=== PATIENT | male | born 1965 | race Caucasian/White ===

== ENCOUNTER 2016-09-03 07:36 | Outpatient (RCR) | payer BC ==
--- OUTSIDE RECORDS SUMMARY | 2016-09-03 07:40 | XMS REPORT | Continuity of Care Document ---
Author Author [facility] Organization [facility] Address Unknown Phone Unavailable Care Team Providers Care Milking Machine Operator Name Role Phone BEULAH ABDALLA DO PCP Insurance Providers Payer Name Policy Number Subscriber Name Relationship [facility] [id number] Lauren Navas 20 Self / Same As Patient Advance Directives Directive Response Recorded Date/Time Advance Directives No 12/12/15 10:08am Health Care Power of Roller Inspector No 12/12/15 10:08am Organ Donor Yes 12/12/15 10:08am Problems Active Problems Medical Problem Onset Date Status Epistaxis Unknown Acute Medications No known medications. Social History Social History Problem Response Recorded Date/Time Alcohol Use Denies Use 04/08/2014 8:41pm Recreational Drug Use No 04/08/2014 8:41pm Recent Foreign Travel No 04/08/2014 8:41pm Recent Infectious Disease Exposure No 04/08/2014 8:41pm Hospital Discharge Instructions No hospital discharge instructions. Plan of Care Prescriptions See Medication Section Functional Status No functional status results. Allergies, Adverse Reactions, Alerts No known allergies. Immunizations No immunization records. Vital Signs No known vital signs results. Results No known relevant diagnostic tests, laboratory data and/or discharge summary. Procedures No known history of procedures. Encounters Encounter Location Arrival/Admit Date Discharge/Depart Date Attending Provider Registered Recurring [facility] 04/30/16 10:45am BEULAH ABDALLA DO
== END 2016-12-02 | disposition home or self-care (01) ==
LOC: CARD 07:36
DX: R00.2 Palpitations (principal); R06.02 Shortness of breath
CPT/HCPCS: 93225; 93226

== ENCOUNTER → 2021-01-21 | Outpatient (CLI) | payer BC ==
[~2021-01-21] VITALS: Ht 158.9 cm; Wt 177.8 kg
[~2021-01-21] MED LIST: EPINEPHrine INJECTION 1 MG/ML AMP IM PRN; [UNRECOGNIZED DRUG - OTHER] IV ONE; diphenhydrAMINE 50 MG/ML INJ (BENADRYL) IV PRN
[2021-01-21 13:20] VITALS: BP 116/59
[2021-01-21 15:00] VITALS: BP 111/71
== END ==
LOC: INFUSION 13:07
PROVIDERS: ATTEND Nurse Practitioner Family
DX: U07.1 COVID-19 (principal)

== ENCOUNTER 2021-01-25 09:57 | Inpatient (IN) | payer BC ==
[~2021-01-25] VITALS: Ht 177.8 cm; Wt 154.2 kg
[2021-01-25] MEDS ORDERED: dexAMETHasone 6 MG TAB (DECADRON) ONE (10:20)
[2021-01-25] MEDS ORDERED: LACTATED RINGERS 1,000 ML IV ONE (10:22)
[2021-01-25 10:55] LABS: BASOPHILS % (AUTO) 0 % (0-10); EOSINOPHILS # (AUTO) 0.1 10^3/uL (0.0-0.3); EOSINOPHILS % (AUTO) 1 % (0-10); HEMATOCRIT 46 % (40-54); LYMPHOCYTES # (AUTO) 0.9 10^3/uL (1.0-4.0); LYMPHOCYTES % (AUTO) 14 % (12-44); MEAN CORPUSCULAR HEMOGLOBIN 30 pg (25-34); MEAN CORPUSCULAR HGB CONC 35 g/dL (32-36); MEAN CORPUSCULAR VOLUME 88 fL (80-99); MEAN PLATELET VOLUME 9.3 fL (9.0-12.2); MONOCYTES # (AUTO) 0.7 10^3/uL (0.0-1.0); MONOCYTES % (AUTO) 11 % (0-12); NEUTROPHILS # (AUTO) 4.9 10^3/uL (1.8-7.8); NEUTROPHILS % (AUTO) 74 % (42-75); PLATELET COUNT 232 10^3/uL (130-400); WHITE BLOOD COUNT 6.6 10^3/uL (4.3-11.0)
--- NOTE | 2021-01-25 11:03 | Diagnostic Imaging Report ---
INDICATION: COVID positive, cough. TECHNIQUE: Single view chest 10:56 AM. CORRELATION STUDY: None FINDINGS: Heart size is borderline enlarged. Vasculature overall within normal limits. Scattered bilateral pulmonary opacities are present, the left slightly greater than right. Also some increased density in the perihilar regions. IMPRESSION: 1. Cardiac enlargement without overt failure. 2. Bilateral pulmonary opacities left greater than right favoring multilobe pneumonia. This would include underlying COVID pneumonia. Followup imaging is recommended as some of these areas have a slightly nodular appearance. Dictated by: Dictated on workstation # [id number]
[2021-01-25 11:08] LABS: ALBUMIN 3.7 GM/DL (3.2-4.5); POTASSIUM 3.2 MMOL/L (3.6-5.0)
[2021-01-25 11:10] LABS: CALCIUM 8.4 MG/DL (8.5-10.1)
[2021-01-25 11:12] LABS: BILIRUBIN,TOTAL 0.8 MG/DL (0.1-1.0)
[2021-01-25 11:14] LABS: CREATININE SERUM 1.87 MG/DL (0.60-1.30)
[2021-01-25 11:32] LABS: ABG OXYGEN SATURATION 97 % (94-100); ABG PCO2 35 MMHG (35-45); ABG PH 7.43 (7.37-7.43); ABG PO2 92 MMHG (79-93); ABG TCO2 23.8 MMOL/L (21.0-31.0)
[2021-01-25 11:34] LABS: INSPIRED O2 3 L; PATIENT TEMP 36.9; VENTILATOR NO
--- NOTE | 2021-01-25 11:40 | ED General ---
General Chief Complaint: Respiratory Problems Stated Complaint: SOA - COVID POSITIVE Nursing Triage Note: Pt on 9th day COVID+. Pt reports getting antibodies Wed. C/o SOB and hypoxia. Nursing Sepsis Screen: No Definite Risk Source of Information: Patient Exam Limitations: No Limitations History of Present Illness Date Seen by Provider: Jan 25, 2021 Time Seen by Provider: 10:00 Initial Comments Here with report of onset of Covid symptoms about 10 days ago. He did receive monoclonal antibody therapy earlier this week. Started to become increasing short of breath over the last 2 days and noted hypoxia at home with O2 sat at 90%. Arrives with O2 sat 85% on room air after resting. Denies fevers but does have persistent cough and congestion. States his mouth is quite dry. Does have history of obesity and hypertension but otherwise is healthy. He did not receive Covid vaccination. Timing/Duration: 2-3 Days, Getting Worse Severity: Moderate, Severe Associated Systoms: Cough, Fever/Chills; No Nausea/Vomiting; Shortness of Air Allergies and Home Medications Allergies Coded Allergies: No Known Drug Allergies (Unverified , 01/25/14) Home Medications No Active Prescriptions or Reported Meds Patient Home Medication List Home Medication List Reviewed: Yes Review of Systems Review of Systems Constitutional: see HPI, fever EENTM: nose congestion Respiratory: cough, short of breath Cardiovascular: no symptoms reported Gastrointestinal: no symptoms reported Genitourinary: no symptoms reported Musculoskeletal: no symptoms reported Skin: no symptoms reported All Other Systems Reviewed Negative Unless Noted: Yes Past Oiwsrby-Yrbmdn-Aiigpm Hx Past Med/Social Hx: Reviewed Nursing Past Med/Soc Hx Patient Social History Alcohol Use: Denies Use 2nd Hand Smoke Exposure: No Recent Infectious Disease Expo: No Recent Hopitalizations: No Past Medical History Surgeries: Yes (LITHOTRIPSY, R hip, bilat carpal tunnel) Orthopedic Respiratory: No Cardiac: Yes Hypertension Neurological: No Genitourinary: No Gastrointestinal: No Musculoskeletal: No Endocrine: No HEENT: No Cancer: No Psychosocial: No Integumentary: No Blood Disorders: No Family Medical History Reviewed Nursing Family Hx Physical Exam-Suspected Sepsis Physical Exam Vital Signs Vital Signs - First Documented 01/25/21 10:14 Temp 36.9 Pulse 80 Resp 20 B/P (MAP) 133/80 (97) Pulse Ox 95 O2 Delivery Nasal Cannula O2 Flow Rate 3.00 Capillary Refill : Less Than 3 Seconds Blood Pressure Mean: 97 Height, Weight, BMI Height: 5'10.00" Weight: 330lbs. 0.0oz. 149.060983mm; 48.00 BMI Method:Stated General Appearance: No Apparent Distress, WD/WN HEENT: PERRL/EOMI, Pharyngeal Erythema Neck: Non Tender, Supple Respiratory: Crackles, Decreased Breath Sounds; No Wheezing Cardiovascular: Regular Rate, Rhythm; No No Murmur Gastrointestinal: Non Tender, Soft Back: Normal Inspection, No CVA Tenderness, No Vertebral Tenderness Extremity: Normal Range of Motion, Non Tender Neurologic/Psychiatric: Alert, Oriented x3 Skin: normal color, warm/dry Progress/Results/Core Measures Suspected Sepsis Recent Fever Within 48 Hours: No Infection Criteria Present: Suspected New Infection New/Unexplained Altered Menta: No Sepsis Screen: No Definite Risk SIRS Temperature: Pulse: 80 Respiratory Rate: 20 Laboratory Tests 01/25/21 10:30: White Blood Count 6.6 Blood Pressure 133 /80 Mean: 97 Laboratory Tests 01/25/21 10:30: Creatinine 1.87H, Platelet Count 232, Total Bilirubin 0.8 Results/Orders Lab Results Laboratory Tests Test 01/25/21 10:30 01/25/21 11:15 Range/Units White Blood Count 6.6 4.3-11.0 10^3/uL Red Blood Count 5.28 4.30-5.52 10^6/uL Hemoglobin 16.0 13.3-17.7 g/dL Hematocrit 46 40-54 % Mean Corpuscular Volume 88 80-99 fL Mean Corpuscular Hemoglobin 30 25-34 pg Mean Corpuscular Hemoglobin Concent 35 32-36 g/dL Red Cell Distribution Width 12.9 10.0-14.5 % Platelet Count 232 130-400 10^3/uL Mean Platelet Volume 9.3 9.0-12.2 fL Immature Granulocyte % (Auto) 1 % Neutrophils (%) (Auto) 74 42-75 % Lymphocytes (%) (Auto) 14 12-44 % Monocytes (%) (Auto) 11 0-12 % Eosinophils (%) (Auto) 1 0-10 % Basophils (%) (Auto) 0 0-10 % Neutrophils # (Auto) 4.9 1.8-7.8 10^3/uL Lymphocytes # (Auto) 0.9 L 1.0-4.0 10^3/uL Monocytes # (Auto) 0.7 0.0-1.0 10^3/uL Eosinophils # (Auto) 0.1 0.0-0.3 10^3/uL Basophils # (Auto) 0.0 0.0-0.1 10^3/uL Immature Granulocyte # (Auto) 0.1 0.0-0.1 10^3/uL D-Dimer 0.79 H 0.00-0.49 UG/ML Sodium Level 139 135-145 MMOL/L Potassium Level 3.2 L 3.6-5.0 MMOL/L Chloride Level 103 98-107 MMOL/L Carbon Dioxide Level 24 21-32 MMOL/L Anion Gap 12 5-14 MMOL/L Blood Urea Nitrogen 33 H 7-18 MG/DL Creatinine 1.87 H 0.60-1.30 MG/DL Estimat Glomerular Filtration Rate 38 BUN/Creatinine Ratio 18 Glucose Level 108 H 70-105 MG/DL Calcium Level 8.4 L 8.5-10.1 MG/DL Corrected Calcium 8.6 8.5-10.1 MG/DL Total Bilirubin 0.8 0.1-1.0 MG/DL Aspartate Amino Transf (AST/SGOT) 80 H 5-34 U/L Alanine Aminotransferase (ALT/SGPT) 73 H 0-55 U/L Alkaline Phosphatase 56 40-136 U/L C-Reactive Protein High Sensitivity 1.23 H 0.00-0.50 MG/DL Total Protein 7.0 6.4-8.2 GM/DL Albumin 3.7 3.2-4.5 GM/DL Procalcitonin 0.09 <0.10 NG/ML Blood Gas Puncture Site RT RAD Blood Gas Patient Temperature 36.9 Arterial Blood pH 7.43 7.37-7.43 Arterial Blood Partial Pressure CO2 35 35-45 MMHG Arterial Blood Partial Pressure O2 92 79-93 MMHG Arterial Blood HCO3 23 23-27 MMOL/L Arterial Blood Total CO2 23.8 21.0-31.0 MMOL/L Arterial Blood Oxygen Saturation 97 94-100 % Arterial Blood Base Excess -1.0 -2.5-2.5 MMOL/L Mohsen Test NA Blood Gas Ventilator Setting NO Blood Gas Inspired Oxygen 3 L My Orders Orders - MARY HODGES MD Dexamethasone Injection (Decadron Inje (01/25/21 10:18) Dexamethasone Tablet (Decadron Tablet) (01/25/21 10:20) Lactated Ringers (Lr 1000 Ml Iv Solution (01/25/21 10:22) Medications Given in ED Current Medications Medications Dose Ordered Sig/Farhat Route Start Time Stop Time Status Last Admin Dose Admin Dexamethasone 6 mg STK-MED ONCE .ROUTE 01/25/21 10:20 01/25/21 10:24 DC 01/25/21 10:33 6 MG Lactated Ringer's 1,000 ml @ ud STK-MED ONCE IV 01/25/21 10:22 01/25/21 10:27 DC 01/25/21 10:35 1,000 MLS/HR Vital Signs/I&O 01/25/21 01/25/21 10:14 10:14 Temp 36.9 Pulse 80 Resp 20 B/P (MAP) 133/80 (97) Pulse Ox 95 85 O2 Delivery Nasal Cannula Room Air O2 Flow Rate 3.00 Capillary Refill : Less Than 3 Seconds Blood Pressure Mean: 97 Progress Note : Progress Note Seen and evaluated. Sepsis protocol initiated. Patient is positive for COVID- 19. He did get monoclonal antibody therapy. IV, labs, chest x-ray ordered. Decadron 6 mg p.o. ordered. Patient placed on O2 via nasal cannula at 3 L and O2 sat improved to 95%. Monitor patient. 1134: I did discuss the case with Dr. Mireles and she accepts patient for admission, inpatient status to the medical floor. This was discussed with the patient who agrees with plan. Diagnostic Imaging Diagonstic Imaging: Xray Plain Films/CT/US/NM/MRI: chest Comments [facility]. [place], [place] NAME: LAUREN NAVAS [facility] REC#: [id number] PT STATUS: REG ER : 1965 PHYSICIAN: VIVIAN LAWRENCE APRN ADMIT DATE: 01/25/21/ER Draft Date of Exam:01/25/21 CHEST 1 VIEW, AP/PA ONLY INDICATION: COVID positive, cough. TECHNIQUE: Single view chest 10:56 AM. CORRELATION STUDY: None FINDINGS: Heart size is borderline enlarged. Vasculature overall within normal limits. Scattered bilateral pulmonary opacities are present, the left slightly greater than right. Also some increased density in the perihilar regions. IMPRESSION: 1. Cardiac enlargement without overt failure. 2. Bilateral pulmonary opacities left greater than right favoring multilobe pneumonia. This would include underlying COVID pneumonia. Followup imaging is recommended and some of these areas have a slightly nodular appearance. Dictated on workstation # [id number] Dict: 01/25/21 1059 Trans: 01/25/21 1103 CV [id number] Interpreted by: AMBER WILLIS DO Electronically signed by: Reviewed: Reviewed by Me Departure Communication (Admissions) Time/Spoke to Admitting Phy: 11:34 Impression Primary Impression: Pneumonia due to COVID-19 virus Disposition: ADMITTED INPATIENT Condition: Stable Admissions Decision to Admit Reason: Admit from ER (General) Decision to Admit/Date: Jan 25, 2021 Time/Decision to Admit Time: 11:34 Departure-Patient Inst. Referrals: DAMION LEÓN DO (PCP/Family) Primary Care Physician Scripts No Active Prescriptions or Reported Meds MARY HODGES MD Jan 25, 2021 11:40
[2021-01-25] MEDS ORDERED: ACETAMINOPHEN 325 MG TABLET PO PRN (11:45)
[2021-01-25] MEDS ORDERED: guaiFENesin/CODEINE (ROBITUSSIN AC) 10ML UDC PO PRN (11:45)
[2021-01-25] MEDS ORDERED: ONDANSETRON 4 MG/2 ML (SDV) Z0FRAN IV PRN (11:45)
[2021-01-25] MEDS ORDERED: REMDESIVIR INJ 200 MG in NS (IVPB) 210 ML IV ONE (11:45)
[2021-01-25 11:55] VITALS: BP 118/63
[2021-01-25] MEDS: ENOXAPARIN 40 MG/0.4 ML (LOVENOX) SYR SC SCH (12:19)
[2021-01-25] MEDS: guaiFENesin SYRUP 100 MG/5 ML 10 ML (ROBITUSSIN SF) PO SCH ×4 (12:19→21:58)
--- NOTE | 2021-01-25 13:22 | History & Physical-Hospitalist ---
History of Present Illness HPI/Chief Complaint Pt is a 55yoCM with a PMH of HTN who presented to the ER due to shortness of breath. He was diagnosed with COVID this week after developing symptoms 9 days ago. He had a family get together with family from out of state about 12 days ago who have all gotten sick since. He has not been vaccinated. He received monoclonal antibody infusion on 01/21. Despite that he has continued to cough and not feel well. His oxygen saturations had been in the low 90s but dropped to the 80s today prompting him to seek evaluation. He responded well to 3lpm and was able to maintain sats with that. He was admitted for further care. Source: patient Date Seen 01/25/21 Time Seen by a Provider: 13:17 Attending Physician Shira Mireles MD PCP Lokesh León DO Referring Physician Date of Admission Jan 25, 2021 at 11:34 Home Medications & Allergies Home Medications Reviewed patient Home Medication Reconciliation performed by pharmacy medication reconciliations technician terminal and repeater and/or nursing. Patients Allergies have been reviewed. Allergies Allergies Coded Allergies No Known Drug Allergies (Unverified01/25/14) Past Ulpuzno-Bvphnx-Uglrbw Hx Patient Social History Marrital Status: Employed/Student: employed Tobacco Use?: No Smoking Status: Never a Smoker Smokeless Tobacco Frequency: Never a User Use of E-Cig and/or Vaping dev: No Substance use?: No Alcohol Use?: No Pt feels they are or have been: No Immunizations Up To Date Tetanus Booster (TDap): Less Than 5 Years Hepatitis A: Yes Hepatitis B: Yes Current Status Advance Directives: No Communicates: Verbally Primary Language: Kyrgyz Preferred Spoken Language: Kyrgyz Is interpretation needed?: No Implanted or Applied Medical D: None Past Medical History Surgeries: Orthopedic Hypertension Blood Disorders: No Family Medical History Reviewed Nursing Family Hx Review of Systems Constitutional: No chills; fever, malaise EENTM: no symptoms reported Respiratory: cough, phlegm, short of breath Cardiovascular: No chest pain, No edema, No palpitations Gastrointestinal: No abdominal pain, No diarrhea, No nausea, No vomiting Genitourinary: no symptoms reported Musculoskeletal: no symptoms reported Skin: no symptoms reported Psychiatric/Neurological: No Symptoms Reported Physical Exam Physical Exam Vital Signs Vital Signs - First Documented 01/25/21 10:14 Temp 36.9 Pulse 80 Resp 20 B/P (MAP) 133/80 (97) Pulse Ox 95 O2 Delivery Nasal Cannula O2 Flow Rate 3.00 Capillary Refill : Less Than 3 Seconds Height, Weight, BMI Height: 5'10.00" Weight: 330lbs. 0.0oz. 149.590391qd; 48.77 BMI Method:Stated General Appearance: No Apparent Distress, Obese HEENT: PERRL/EOMI, Moist Mucous Membranes; No Scleral Icterus (L), No Scleral Icterus (R) Neck: Normal Inspection, Supple Respiratory: No Accessory Muscle Use; No Crackles; Decreased Breath Sounds, Other (on 3lpm) Cardiovascular: Regular Rate, Rhythm, No Murmur Gastrointestinal: Normal Bowel Sounds, Non Tender, Soft Extremity: Normal Capillary Refill, No Calf Tenderness, No Pedal Edema Neurologic/Psychiatric: Alert, Oriented x3, Normal Mood/Affect Skin: Normal Color, Warm/Dry Results Results/Procedures Labs Laboratory Tests 01/25/21 10:30 Patient resulted labs reviewed. Imaging: Reviewed Imaging Report Imaging [facility] [place], [place] NAME: LAUREN NAVAS [facility] REC#: [id number] PT STATUS: REG ER : 1965 PHYSICIAN: VIVIAN LAWRENCE APRN ADMIT DATE: 01/25/21/ER Signed Date of Exam:01/25/21 CHEST 1 VIEW, AP/PA ONLY INDICATION: COVID positive, cough. TECHNIQUE: Single view chest 10:56 AM. CORRELATION STUDY: None FINDINGS: Heart size is borderline enlarged. Vasculature overall within normal limits. Scattered bilateral pulmonary opacities are present, the left slightly greater than right. Also some increased density in the perihilar regions. IMPRESSION: 1. Cardiac enlargement without overt failure. 2. Bilateral pulmonary opacities left greater than right favoring multilobe pneumonia. This would include underlying COVID pneumonia. Followup imaging is recommended as some of these areas have a slightly nodular appearance. Dictated by: Dictated on workstation # [id number] Dict: 01/25/21 1059 Trans: 01/25/21 1133 CVB [id number] Interpreted by: AMBER WILLIS DO Electronically signed by: AMBER WILLIS DO 01/25/21 1133 Assessment/Plan Admission Diagnosis Acute hypoxic respiratory failure due to COVID19 Admission Status: Inpatient Order (span 2 midnights) Reason for Inpatient Admission: see below Assessment and Plan Acute hypoxic respiratory failure due to COVID19 85% on room air Doing well on 3lpm Start on remdesivir Start on decadron Already received monoclonal anitbody so convalescent plasma not indicated IS MAT protocol Discussed natural course of illess and that COVID likely gets worse before it get better at this time so anticipate a few days in the hospital HTN BP well controlled, even a little soft on last check Trend Morbid obesity No acute needs DVT ppx: Lovenox Diagnosis/Problems Diagnosis/Problems (1) Acute respiratory failure Qualifiers: Respiratory failure complication: hypoxia Qualified Codes: J96.01 - Acute respiratory failure with hypoxia (2) COVID-19 (3) Essential (primary) hypertension (4) Obesity Qualifiers: Obesity type: unspecified obesity type Obesity classification: adult class 3 (BMI >= 40) Serious obesity comorbidity presence: without serious comorbidity Body mass index: BMI 45.0-49.9 Qualified Codes: E66.01 - Morbid (severe) obesity due to excess calories; Z68.42 - Body mass index [BMI] 45.0- 49.9, adult Copy Copies To 1: LOKESH LEÓN KATELYN M MD Jan 25, 2021 13:22
[2021-01-25] MEDS ORDERED: REMDESIVIR INJ 200 MG in NS (IVPB) 210 ML IV NR (14:00)
[2021-01-25] MEDS ORDERED: REMDESIVIR INJ 100 MG in NS (IVPB) 230 ML IV SCH (14:00)
[2021-01-25 17:00] VITALS: BP 129/70
[2021-01-25 20:04] VITALS: BP 125/84
[2021-01-25 23:47] VITALS: BP 130/75
[2021-01-26 03:42] VITALS: BP 135/81
[2021-01-26] MEDS: guaiFENesin SYRUP 100 MG/5 ML 10 ML (ROBITUSSIN SF) PO SCH ×5 (04:20→19:45)
[2021-01-26 05:28] LABS: ALBUMIN 3.3 GM/DL (3.2-4.5); POTASSIUM 3.6 MMOL/L (3.6-5.0)
[2021-01-26 05:31] LABS: TOTAL PROTEIN 6.2 GM/DL (6.4-8.2)
[2021-01-26 05:32] LABS: BILIRUBIN,TOTAL 0.7 MG/DL (0.1-1.0)
[2021-01-26 05:34] LABS: CREATININE SERUM 1.44 MG/DL (0.60-1.30)
[2021-01-26 08:00] VITALS: BP 133/66
[2021-01-26] MEDS: dexAMETHasone 6 MG TAB (DECADRON) PO SCH (09:10)
[2021-01-26] MEDS ORDERED: LOSARTAN 100 MG (COZAAR) TABLET PO ONE (11:15)
[2021-01-26] MEDS ORDERED: guaiFENesin (MUCINEX) 600 MG TAB PO ONE (11:15)
[2021-01-26] MEDS: ENOXAPARIN 40 MG/0.4 ML (LOVENOX) SYR SC SCH (11:26)
[2021-01-26] MEDS ORDERED: CHOL10007 PO (12:08)
[2021-01-26] MEDS ORDERED: FLUT12AE6 INH (12:08)
[2021-01-26] MEDS ORDERED: LOSA1TAB23 PO (12:08)
[2021-01-26] MEDS ORDERED: ZINC50TA11 PO (12:08)
[2021-01-26] MEDS ORDERED: ASCO-262 PO (12:08)
[2021-01-26] MEDS ORDERED: ASPI-1238 PO (12:08)
[2021-01-26 12:36] VITALS: BP 122/62
[2021-01-26] MEDS: REMDESIVIR INJ 100 MG in NS (IVPB) 230 ML IV SCH (15:28)
[2021-01-26 15:40] VITALS: BP 121/69
--- NOTE | 2021-01-26 18:53 | Progress Note - Hospitalist ---
Subjective HPI/CC On Admission Date Seen by Provider: Jan 26, 2021 Time Seen by Provider: 10:55 Pt is a 55yoCM with a PMH of HTN who presented to the ER due to shortness of breath. He was diagnosed with COVID this week after developing symptoms 9 days ago. He had a family get together with family from out of state about 12 days ago who have all gotten sick since. He has not been vaccinated. He received monoclonal antibody infusion on 01/21. Despite that he has continued to cough and not feel well. His oxygen saturations had been in the low 90s but dropped to the 80s today prompting him to seek evaluation. He responded well to 3lpm and was able to maintain sats with that. He was admitted for further care. Subjective/Events-last exam He is still short of breath. He continues to have a cough. He has not had fevers. He is up and walking. Objective Exam Vital Signs Vital Signs Date Time Temp Pulse Resp B/P (MAP) Pulse Ox O2 Delivery O2 Flow Rate FiO2 01/26/21 15:40 36.0 67 18 121/69 (86) 96 Nasal Cannula 4.00 Capillary Refill : Less Than 3 Seconds General Appearance: No Apparent Distress, Obese Respiratory: No Respiratory Distress, Decreased Breath Sounds Cardiovascular: Regular Rate, Rhythm, No Edema, No Murmur Gastrointestinal: Normal Bowel Sounds, Non Tender, Soft Extremity: Normal Inspection, Non Tender, No Pedal Edema Neurologic/Psychiatric: Alert, Oriented x3, No Motor/Sensory Deficits, Normal Mood/Affect Skin: Normal Color, Warm/Dry Results/Procedures Lab Laboratory Tests 01/26/21 05:02 Patient resulted labs reviewed. Imaging: Reviewed Imaging Report Assessment/Plan Assessment and Plan Assess & Plan/Chief Complaint Acute respiratory failure due to COVID-19 Continue Decadron Continue Remdesivir day 2/5 s/p monoclonal antibody infusion prior to admission IS MAT protocol Procal normal Ddimer mildly elevated Repeat procalcitonin and ddimer tomorrow morning ADEBAYO on CKD Cr 1.8 on arrival, improved to 1.4 today, unknown baseline Monitor Elevated LFTs Slightly elevated on arrival, improving today Continue to monitor HTN Continue Losartan Morbid obesity No acute needs DVT ppx: Lovenox Diagnosis/Problems Diagnosis/Problems (1) Acute respiratory failure due to COVID-19 Status: Acute (2) Pneumonia due to COVID-19 virus Status: Acute (3) Elevated LFTs Status: Acute (4) Acute kidney injury superimposed on chronic kidney disease Status: Acute (5) Morbid obesity Status: Chronic (6) HTN (hypertension) Status: Chronic Qualifiers: Hypertension type: essential hypertension Qualified Codes: I10 - Essential (primary) hypertension ESTEPHANIA RODRIGUEZ MD Jan 26, 2021 18:53
[2021-01-26 19:43] VITALS: BP 128/68
[2021-01-26] MEDS: guaiFENesin (MUCINEX) 600 MG TAB PO SCH (19:45)
[2021-01-26 23:08] VITALS: BP 145/73
[2021-01-27] MEDS: guaiFENesin SYRUP 100 MG/5 ML 10 ML (ROBITUSSIN SF) PO SCH ×3 (00:42→05:58)
[2021-01-27 04:04] VITALS: BP 137/75
[2021-01-27 06:38] LABS: ALANINE AMINOTRANSFERASE 61 U/L (0-55); ALBUMIN 3.4 GM/DL (3.2-4.5); ALKALINE PHOSPHATASE 46 U/L (40-136); BILIRUBIN,TOTAL 0.6 MG/DL (0.1-1.0); BUN/CREATININE RATIO 21; CALCIUM 8.8 MG/DL (8.5-10.1); CARBON DIOXIDE 23 MMOL/L (21-32); CHLORIDE 106 MMOL/L (98-107); CREATININE SERUM 1.15 MG/DL (0.60-1.30); GFR ESTIMATED > 60; GLUCOSE 125 MG/DL (70-105); POTASSIUM 3.8 MMOL/L (3.6-5.0); SODIUM 139 MMOL/L (135-145); TOTAL PROTEIN 6.4 GM/DL (6.4-8.2)
[2021-01-27 08:00] VITALS: BP 137/91
[2021-01-27] MEDS: guaiFENesin (MUCINEX) 600 MG TAB PO SCH ×2 (09:18→19:56)
[2021-01-27] MEDS: LOSARTAN 100 MG (COZAAR) TABLET PO SCH (09:19)
[2021-01-27] MEDS: dexAMETHasone 6 MG TAB (DECADRON) PO SCH (09:19)
[2021-01-27] MEDS: ENOXAPARIN 40 MG/0.4 ML (LOVENOX) SYR SC SCH ×2 (09:21→19:56)
[2021-01-27 12:00] VITALS: BP 154/74
[2021-01-27] MEDS: REMDESIVIR INJ 100 MG in NS (IVPB) 230 ML IV SCH (14:38)
[2021-01-27 15:50] VITALS: BP 140/75
--- NOTE | 2021-01-27 18:07 | Progress Note - Hospitalist ---
Subjective HPI/CC On Admission Date Seen by Provider: Jan 27, 2021 Time Seen by Provider: 11:10 Pt is a 55yoCM with a PMH of HTN who presented to the ER due to shortness of breath. He was diagnosed with COVID this week after developing symptoms 9 days ago. He had a family get together with family from out of state about 12 days ago who have all gotten sick since. He has not been vaccinated. He received monoclonal antibody infusion on 01/21. Despite that he has continued to cough and not feel well. His oxygen saturations had been in the low 90s but dropped to the 80s today prompting him to seek evaluation. He responded well to 3lpm and was able to maintain sats with that. He was admitted for further care. Subjective/Events-last exam He is feeling better. He denies trouble breathing. He still has a cough. Objective Exam Vital Signs Vital Signs Date Time Temp Pulse Resp B/P (MAP) Pulse Ox O2 Delivery O2 Flow Rate FiO2 01/27/21 15:50 36.0 67 18 140/75 (96) 97 Nasal Cannula 3.00 Capillary Refill : Less Than 3 Seconds General Appearance: No Apparent Distress, Obese Respiratory: Lungs Clear, Normal Breath Sounds, No Respiratory Distress Cardiovascular: Regular Rate, Rhythm, No Edema, No Murmur Gastrointestinal: Normal Bowel Sounds, Non Tender, Soft Extremity: Normal Inspection, Non Tender, No Pedal Edema Neurologic/Psychiatric: Alert, Oriented x3, No Motor/Sensory Deficits, Normal Mood/Affect Skin: Normal Color, Warm/Dry Results/Procedures Lab Laboratory Tests 01/27/21 05:55 Patient resulted labs reviewed. Imaging: Reviewed Imaging Report Assessment/Plan Assessment and Plan Assess & Plan/Chief Complaint Acute respiratory failure due to COVID-19 Continue Decadron Continue Remdesivir day 3/5 s/p monoclonal antibody infusion prior to admission IS MAT protocol Procal remains normal Ddimer mildly elevated, improving Perform home oxygen study tomorrow ADEBAYO on CKD Cr 1.8 on arrival, improved to 1.15 today, unknown baseline Monitor Elevated LFTs Slightly elevated on arrival, improving today Continue to monitor HTN Continue Losartan Morbid obesity No acute needs DVT ppx: Lovenox Diagnosis/Problems Diagnosis/Problems (1) Acute respiratory failure due to COVID-19 Status: Acute (2) Pneumonia due to COVID-19 virus Status: Acute (3) Elevated LFTs Status: Acute (4) Acute kidney injury superimposed on chronic kidney disease Status: Acute (5) Morbid obesity Status: Chronic (6) HTN (hypertension) Status: Chronic Qualifiers: Hypertension type: essential hypertension Qualified Codes: I10 - Essential (primary) hypertension ESTEPHANIA RODRIGUEZ MD Jan 27, 2021 18:07
[2021-01-27] MEDS ORDERED: MILK OF MAGNESIA 400 MG/5 ML 30 ML UDC PO PRN (18:15)
[2021-01-27] MEDS ORDERED: ANTACID SUSP 30 ML UDC (MYLANTA) PO PRN (18:15)
[2021-01-27] MEDS ORDERED: MELATONIN 3 MG TABLET PO PRN (18:15)
[2021-01-27] MEDS ORDERED: polyethylene glycoL POWDER 17 GM (MIRALAX) PACK PO PRN (18:15)
[2021-01-27] MEDS ORDERED: diphenhydrAMINE 25 MG TAB (BENADRYL) PO PRN (18:15)
[2021-01-27 19:10] VITALS: BP 133/76
[2021-01-27 23:54] VITALS: BP 143/65
[2021-01-28 04:41] VITALS: BP 145/82
[2021-01-28 06:27] LABS: ALBUMIN 3.3 GM/DL (3.2-4.5); BILIRUBIN,TOTAL 0.6 MG/DL (0.1-1.0); CALCIUM 8.6 MG/DL (8.5-10.1); CREATININE SERUM 1.29 MG/DL (0.60-1.30); POTASSIUM 3.9 MMOL/L (3.6-5.0); TOTAL PROTEIN 6.3 GM/DL (6.4-8.2)
[2021-01-28 08:05] VITALS: BP 136/75
[2021-01-28] MEDS: guaiFENesin (MUCINEX) 600 MG TAB PO SCH (09:07)
[2021-01-28] MEDS: dexAMETHasone 6 MG TAB (DECADRON) PO SCH (09:07)
[2021-01-28] MEDS: LOSARTAN 100 MG (COZAAR) TABLET PO SCH (09:07)
[2021-01-28] MEDS: ENOXAPARIN 40 MG/0.4 ML (LOVENOX) SYR SC SCH (09:07)
[2021-01-28 12:27] VITALS: BP 132/63
[2021-01-28 14:55] VITALS: BP 132/63
--- NOTE | 2021-01-28 18:47 | Discharge Summary ---
Discharge Summary Hospital Course Was the Problem List Reviewed?: Yes Problems/Dx: (1) Acute respiratory failure due to COVID-19 Status: Acute (2) Pneumonia due to COVID-19 virus Status: Acute (3) Elevated LFTs Status: Acute (4) Acute kidney injury superimposed on chronic kidney disease Status: Acute (5) Morbid obesity Status: Chronic (6) HTN (hypertension) Status: Chronic Qualifiers: Qualified Codes: I10 - Essential (primary) hypertension Hospital Course Date of Admission: Jan 25, 2021 at 11:34 Admission Diagnosis: Acute respiratory failure due to COVID-19 Family Physician/Provider: Lokesh Lerma DO Date of Discharge: 01/28/21 Discharge Diagnosis: Acute respiratory failure due to COVID-19 Hospital Course: Kin Huertas is a 55 year old male with HTN, morbid obesity, who was admitted with acute respiratory failure due to COVID-19. He was diagnosed as an outpatient and had received a monoclonal antibody infusion. He was started on Decadron and Remdesivir. He received four doses of Remdesivir. He was requiring supplemental oxygen throughout his hospitalization, but a home oxygen study revealed no oxygen requirement at the time of discharge. His course was complicated by elevated LFTs which remained stable. He also had an acute kidney injury on chronic kidney disease which improved. He was discharged home in stable condition. He should follow up with his PCP. Labs and Pending Lab Test: Laboratory Tests 01/28/21 05:30: Sodium Level 138, Potassium Level 3.9, Chloride Level 105, Carbon Dioxide Level 24, Anion Gap 9, Blood Urea Nitrogen 24H, Creatinine 1.29, Estimat Glomerular Filtration Rate 58, BUN/Creatinine Ratio 19, Glucose Level 114H, Calcium Level 8.6, Corrected Calcium 9.2, Total Bilirubin 0.6, Aspartate Amino Transf (AST/SGOT) 37H, Alanine Aminotransferase (ALT/SGPT) 67H, Alkaline Phosphatase 45, Total Protein 6.3L, Albumin 3.3 Microbiology 01/25/21 Blood Culture - Preliminary, Resulted No growth Home Meds Active Reported Vitamin D3 (Cholecalciferol (Vitamin D3)) 25 Mcg Capsule 25 Mcg PO DAILY Aspirin EC (Aspirin) 81 Mg Tablet.dr 81 Mg PO DAILY Vitamin C (Ascorbate Calcium) 500 Mg Tablet 500 Mg PO DAILY Zinc (Zinc Gluconate) 50 Mg Tablet 50 Mg PO DAILY Losartan-Hctz 100-25 mg Tab (Losartan/Hydrochlorothiazide) 1 Each Tablet 1 Ea PO DAILY Advair Hfa 230-21 Mcg Inhaler (Fluticasone/Salmeterol) 12 Gm Hfa.aer.ad 2 Puff INH BID Assessment/Pt Instructions Take medications as prescribed. Follow up with your PCP. Return with worsening symptoms. Discharge Planning: <30 minutes discharge planning Discharge Instructions Discharge Diet: No Restrictions Activity as Tolerated: Yes Discharge Physical Examination Vital Signs Vital Signs Date Time Temp Pulse Resp B/P (MAP) Pulse Ox O2 Delivery O2 Flow Rate FiO2 01/28/21 14:55 35.8 70 20 132/63 95 Room Air 01/28/21 09:00 3.00 General Appearance: No Apparent Distress, Obese Respiratory: Lungs Clear, Normal Breath Sounds, No Respiratory Distress Cardiovascular: Regular Rate, Rhythm, No Edema, No Murmur Gastrointestinal: Normal Bowel Sounds, Non Tender, Soft Extremity: Normal Inspection, Non Tender, No Pedal Edema Skin: Normal Color, Warm/Dry Neurologic/Psychiatric: Alert, Oriented x3, No Motor/Sensory Deficits, Normal Mood/Affect Allergies: Coded Allergies: No Known Drug Allergies (Unverified , 01/25/21) Discharge Summary Date of Admission Jan 25, 2021 at 11:34 Date of Discharge Jan 28, 2021 at 14:55 Discharge Date: Jan 28, 2021 Discharge Time: 14:55 Admission Diagnosis Acute respiratory failure due to COVID-19 Discharge Diagnosis Acute respiratory failure due to COVID-19 (1) Acute respiratory failure due to COVID-19 Status: Acute (2) Pneumonia due to COVID-19 virus Status: Acute (3) Elevated LFTs Status: Acute (4) Acute kidney injury superimposed on chronic kidney disease Status: Acute (5) Morbid obesity Status: Chronic (6) HTN (hypertension) Status: Chronic Qualifiers: Qualified Codes: I10 - Essential (primary) hypertension ESTEPHANIA RODRIGUEZ MD Jan 28, 2021 18:41
== END 2021-01-28 14:55 | disposition home or self-care (01) | DRG 177 ==
LOC: EDUNIT# 09:57 → ER 09:59 → 4TH 11:34
PROVIDERS: ADMIT Family Medicine; ATTEND Internal Medicine
PROC: XW033E5 Introduction of Remdesivir Anti-infective into Peripheral Vein, Percutaneous Approach, New Technology Group 5 (ICD-10-PCS; principal; 2021-01-25)
PROC: 5A09357 Assistance with Respiratory Ventilation, Less than 24 Consecutive Hours, Continuous Positive Airway Pressure (ICD-10-PCS; 2021-01-25)
DX: U07.1 COVID-19 (principal); J12.82 Pneumonia due to coronavirus disease 2019; J96.01 Acute respiratory failure with hypoxia; Z68.42 Body mass index [BMI] 45.0-49.9, adult; N17.9 Acute kidney failure, unspecified; E66.01 Morbid (severe) obesity due to excess calories; N18.9 Chronic kidney disease, unspecified; I12.9 Hypertensive chronic kidney disease with stage 1 through stage 4 chronic kidney disease, or unspecified chronic kidney disease
CPT/HCPCS: 36415; 71045; 80053; 82805; 84145; 85025; 85379; 86141; 87040; 94761

== ENCOUNTER 2022-03-26 19:29 | Outpatient (CLI) | payer BC ==
[~2022-03-26 19:29] MED LIST changes: +ASCO-262 PO; +ASPI-1238 PO; +CHOL10007 PO; -EPINEPHrine INJECTION 1 MG/ML AMP IM PRN; +FLUT12AE6 INH; +LOSA1TAB23 PO; +ZINC50TA11 PO; -[UNRECOGNIZED DRUG - OTHER] IV ONE; -diphenhydrAMINE 50 MG/ML INJ (BENADRYL) IV PRN
== END 2022-03-27 04:30 | disposition home or self-care (01) ==
LOC: SLEEP 19:29
PROVIDERS: ATTEND Nurse Practitioner Family
DX: G47.33 Obstructive sleep apnea (adult) (pediatric) (principal)
CPT/HCPCS: 95811